=== PATIENT | female | born 1955 | race American Indian/Alaskan Native ===

== ENCOUNTER 2021-05-21 10:16 | Emergency (ER) | payer OTHER ==
[2021-05-21] MEDS ORDERED: IBUPROFEN 800 MG TAB PO ONE (10:37)
[2021-05-21] MEDS ORDERED: oxyCODONE /ACETAMINOPHEN 5-325MG TAB PO ONE (10:37)
[2021-05-21] MEDS ORDERED: TETANUS,DIPH,PERTUSS(ACELL) VACCINE 0.5 ML SYRINGE IM ONE (10:37)
[2021-05-21] MEDS ORDERED: NEOMY 3.5 MG/BACIT 400 UNITS/POLY B 5000 UNITS/GM OINT PACKET TP ONE (11:35)
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
[2021-05-21 12:05] VITALS: BP 179/79
== END 2021-05-21 12:05 | disposition home or self-care (01) ==
LOC: ED 10:16
DX: T23.202A Burn of second degree of left hand, unspecified site, initial encounter (principal); T22.111A Burn of first degree of right forearm, initial encounter; T31.0 Burns involving less than 10% of body surface; I10 Essential (primary) hypertension; E11.9 Type 2 diabetes mellitus without complications; X12.XXXA Contact with other hot fluids, initial encounter; Y93.89 Activity, other specified; Y92.89 Other specified places as the place of occurrence of the external cause; Y99.8 Other external cause status
CPT/HCPCS: 90471; 90715; 99282